=== PATIENT | male | born 1990 | race Caucasian/White ===

== ENCOUNTER 2019-08-25 13:48 | Emergency (ER) | payer SELFPAY ==
[2019-08-25] MEDS ORDERED: Lidocaine 1% with EPINEPHrine 1:100,000 10 ML MDV INJECT ONE (14:20)
--- NOTE | 2019-08-25 14:25 | EDM.PDOC ---
<[place],Zeynepthelma E - Last Filed: 08/25/19 15:17> ED HPI GENERAL MEDICAL PROBLEM - General Chief Complaint: Laceration Stated Complaint: CUT ON LT LEG Time Seen by Provider: 08/25/19 14:10 - Related Data Allergies Allergy/AdvReac Type Severity Reaction Status Date / Time No Known Allergies Allergy Verified 08/25/19 14:52 Home Meds: Home Meds . [No Known Home Meds] 08/25/19 [History] ED SKIN PROCEDURES - Laceration/Wound Repair Right posterior ankle Appearance: Subcutaneous, Linear Distal NVT: Neuro & Vascular Intact, No Tendon Injury, Other (Appears to have no achilles tendon involvment) Local Anesthesia - Lidocaine (Xylocaine): 1% Plain Local Anesthetic Volume: 3cc Skin Prep: Chlorhexidine (Hibiciens), Saline, Sterile Drape Saline Irrigation (cc's): 50 Exploration/Debridement/Repair: Wound Explored, In a Bloodless Field, Explored to Base, No Foreign Material Found Closed with: Sutures Lac/Wound length In cm: 3 Suture Size: 4-0 # of Sutures: 6 Suture Type: Nylon, Interrupted, Simple Drain Placement: No Sterile Dressing Applied: Provider Tetanus Status Addressed: Yes Complications: No Course - Vital Signs Last Recorded V/S: Last Vital Signs Temp 97.9 F 08/25/19 14:53 Pulse 56 L 08/25/19 14:53 Resp 19 08/25/19 14:53 BP 108/36 L 08/25/19 14:53 Pulse Ox 98 08/25/19 14:53 - Orders/Labs/Meds Meds: Medications Discontinued Medications Generic Name Dose Route Start Last Admin Trade Name Jerald PRN Reason Stop Dose Admin Bacitracin 1 dose 08/25/19 15:20 Bacitracin Oint 1 Gm TOP 08/25/19 15:21 ONETIME ONE Lidocaine/Epinephrine 10 ml 08/25/19 14:20 08/25/19 15:23 Xylocaine 1% With Epinephrine 1:100,000 INJECT 08/25/19 14:21 Not Given ONETIME ONE Lidocaine/Epinephrine Confirm 08/25/19 14:40 08/25/19 15:04 Xylocaine 1% With Epinephrine 1:100,000 Administered 08/25/19 14:41 20 ml Dose Administration 20 ml .ROUTE .STK-MED ONE Departure - Departure Time of Disposition: 15:18 Disposition: Home, Self-Care 01 Clinical Impression: Laceration - Discharge Information Instructions: Laceration Care, Adult, [id number] Referrals: PCP,None [Primary Care Provider] - Forms: ED Department Discharge Additional Instructions: The following information is given to patients seen in the emergency department who are being discharged to home. This information is to outline your options for follow-up care. We provide all patients seen in our emergency department with a follow-up referral. The need for follow-up, as well as the timing and circumstances, are variable depending upon the specifics of your emergency department visit. If you don't have a primary care physician on staff, we will provide you with a referral. We always advise you to contact your personal physician following an emergency department visit to inform them of the circumstance of the visit and for follow-up with them and/or the need for any referrals to a consulting specialist. The emergency department will also refer you to a specialist when appropriate. This referral assures that you have the opportunity for follow-up care with a specialist. All of these measure are taken in an effort to provide you with optimal care, which includes your follow-up. Under all circumstances we always encourage you to contact your private physician who remains a resource for coordinating your care. When calling for follow-up care, please make the office aware that this follow-up is from your recent emergency room visit. If for any reason you are refused follow-up, please contact the [facility] Emergency Department at and asked to speak to the emergency department charge nurse. [facility] [address] [place] [id number] [id number] 1. Keep the area clean and dry. Continue to monitor for signs of infection. Sutures to be removed in 7-10 days. 2. Tylenol and/or ibuprofen as needed for pain management. 3. Please follow-up with your primary care provider in the next 1-2 days. Return to the ED as needed and as discussed. Sepsis Event Note - Focused Exam Vital Signs: Vital Signs Temp Pulse Resp BP Pulse Ox 08/25/19 14:53 97.9 F 56 L 19 108/36 L 98 Date Exam was Performed: 08/25/19 Time Exam was Performed: 15:17 <Evangelist Tovar - Last Filed: 08/25/19 15:25> ED HPI GENERAL MEDICAL PROBLEM - General Source of Information: Reports: Patient - History of Present Illness INITIAL COMMENTS - FREE TEXT/NARRATIVE: Otherwise well 29-year-old male presents with left posterior ankle laceration. Patient was at work and they were hanging corrugated metal siding and he accidentally ran his leg across the edge leading to a laceration just over the Achilles tendon. Patient quite concerned for potential Achilles tendon rupture. He did not fall he has no other injuries he reports his last tetanus was within the last 7 years. Minimal pain does worsen somewhat with direct evaluation pressure. No alleviating factors no radiation no other associated symptoms. ED ROS GENERAL - Review of Systems Review Of Systems: See Below Free Text/Narrative/Comment: General: No fever. Skin: No rash. Musculoskeletal: Per HPI Neurologic: No headache. ED EXAM, SKIN/RASH Exam: See Below Text/Narrative:: General Appearance: No acute distress, appears comfortable Skin: No rash HEENT: Normocephalic/atraumatic, sclera anicteric, mucous membranes moist Neck: Normal range of motion Back: Normal Musculoskeletal: 3 cm laceration of the skin overlying the Achilles approximately 4 cm proximal to the insertion site it is a clean incision close exam with good anesthesia and hemostasis reveals no signs of deep structure violation. Hannah test is normal. Neurologic: Awake, alert, no obvious deficits, moving all extremities Psychiatric: Appropriate, cooperative Course - Vital Signs Last Recorded V/S: Last Vital Signs Temp 97.9 F 08/25/19 14:53 Pulse 56 L 08/25/19 14:53 Resp 19 08/25/19 14:53 BP 108/36 L 08/25/19 14:53 Pulse Ox 98 08/25/19 14:53 - Orders/Labs/Meds Meds: Medications Discontinued Medications Generic Name Dose Route Start Last Admin Trade Name Freq PRN Reason Stop Dose Admin Bacitracin 1 dose 08/25/19 15:20 Bacitracin Oint 1 Gm TOP 08/25/19 15:21 ONETIME ONE Lidocaine/Epinephrine 10 ml 08/25/19 14:20 08/25/19 15:23 Xylocaine 1% With Epinephrine 1:100,000 INJECT 08/25/19 14:21 Not Given ONETIME ONE Lidocaine/Epinephrine Confirm 08/25/19 14:40 08/25/19 15:04 Xylocaine 1% With Epinephrine 1:100,000 Administered 08/25/19 14:41 20 ml Dose Administration 20 ml .ROUTE .[facility]-MED ONE Sepsis Event Note - Focused Exam Vital Signs: Vital Signs Temp Pulse Resp BP Pulse Ox 08/25/19 14:53 97.9 F 56 L 19 108/36 L 98 Date Exam was Performed: 08/25/19 Time Exam was Performed: 15:24 - Assessment/Plan Assessment:: 29-year-old male with up-to-date tetanus presenting with left ankle laceration as described above. Based on initial assessment I think any injury to the Achilles tendon is unlikely his appropriate reflexes are intact the wound appears superficial. Laceration repaired as documented. No indication of Achilles tendon injury strength intact close inspection evaluation during laceration repair performed by nurse practitioner revealed no signs of tendon injury. Laceration repaired patient discharged with appropriate instructions.
[2019-08-25] MEDS ORDERED: Lidocaine 1% with EPINEPHrine 1:100,000 20 ML MDV ONE (14:40)
[2019-08-25] MEDS ORDERED: Bacitracin Oint 1 GM U/D Packet TOP ONE (15:20)
== END 2019-08-25 15:37 | disposition home or self-care (01) ==
LOC: MW.ED 13:48
DX: S91.012A Laceration without foreign body, left ankle, initial encounter (principal); W26.8XXA Contact with other sharp object(s), not elsewhere classified, initial encounter
CPT/HCPCS: 12002; 99282-25